=== PATIENT | male | born 1980 | race Caucasian/White ===

== ENCOUNTER → 2018-02-14 | Outpatient (CLI) | payer OTHER ==
[2018-02-07 08:21] VITALS: Ht 181.6 cm; Wt 69.6 kg
--- NOTE | 2018-02-07 09:04 | PAT Medication Instructions ---
Service Date Feb 07, 2018. Current Home Medication List Acetaminophen (Tylenol), 1-2 TAB PO UD PRN for PRN Fluticasone Propionate (Nasal) (Flonase Allergy Relief), 1 SPRAY FAHEEM UD PRN for PRN Lorazepam (Ativan), Unknown Dose PO UD PRN for Anxiety Paroxetine (Paxil), 30 MG PO DAILY Ranitidine (Zantac), 150 MG PO UD PRN for acid reflux Medication Instructions For Your Scheduled Surgery - The following medications can be taken the morning of surgery with a sip of water: Acetaminophen (Tylenol), 1-2 TAB PO UD PRN for PRN (if needed, can be taken up to four hours before surgery) Fluticasone Propionate (Nasal) (Flonase Allergy Relief), 1 SPRAY FAHEEM UD PRN for PRN (if needed) Lorazepam (Ativan), Unknown Dose PO UD PRN for Anxiety (if needed) Paroxetine (Paxil), 30 MG PO DAILY Ranitidine (Zantac), 150 MG PO UD PRN for acid reflux (if needed) - Take the following medications as scheduled the night before surgery: Acetaminophen (Tylenol), 1-2 TAB PO UD PRN for PRN (if needed) Fluticasone Propionate (Nasal) (Flonase Allergy Relief), 1 SPRAY FAHEEM UD PRN for PRN (if needed) Lorazepam (Ativan), Unknown Dose PO UD PRN for Anxiety (if needed) Paroxetine (Paxil), 30 MG PO DAILY Ranitidine (Zantac), 150 MG PO UD PRN for acid reflux (if needed) If you have any questions please call us at [phone] or [phone] or [phone]
[2018-02-07 10:08] LABS: BASO % 0.5 %; BASO ABS # 0.03 K/uL (0-0.2); EOS % 1.9 %; EOS ABS # 0.12 K/uL (0-0.5); HEMATOCRIT 43.4 % (42-52); HEMOGLOBIN 15.1 g/dL (14.0-18.0); IG# 0.02 K/uL (0.00-0.02); LYMPH % 34.7 %; LYMPH ABS # 2.24 K/uL (1.2-3.4); MEAN CELL VOLUME 93.5 fL (80-100); MEAN CORPUSCULAR HEMOGLOBIN 32.5 pg (25-34); MEAN CORPUSCULAR HGB CONC 34.8 g/dl (32-36); MEAN PLATELET VOLUME 9.7 fL (7.4-10.4); MONO % 9.1 %; MONO ABS # 0.59 K/uL (0.11-0.59); NEUT % 53.5 %; NEUT ABS # 3.45 K/uL (1.4-6.5); PLATELET COUNT 201 K/uL (130-400); RED CELL DISTRIBUTION WIDTH CV 12.6 % (11.5-14.5); WHITE BLOOD COUNT 6.45 K/uL (4.8-10.8)
[~2018-02-14] VITALS: Ht 181.6 cm; Wt 69.6 kg
[~2018-02-14] MED LIST: ACET-1256 PO; FLUT0.15 NAE; LACTATED RINGER'S 1000ML 1,000 ML IV SCH; LORA-741 PO; PARO1TAB27 PO; RANI150T85 PO
== END | disposition home or self-care (01) ==
LOC: C.LAB 08:00 → EDSTATUS 09:00
PROVIDERS: ATTEND Otolaryngology
DX: Z01.818 Encounter for other preprocedural examination (principal)